=== PATIENT | female | born 2000 | race Caucasian/White ===

== ENCOUNTER 2022-10-13 19:42 | Emergency (ER) | payer BC ==
[~2022-10-13] VITALS: Ht 154.9 cm; Wt 65.8 kg
[2022-10-13 21:09] VITALS: BP 149/96
[2022-10-13] MEDS ORDERED: AMOX-430 PO (22:08)
--- NOTE | 2022-10-13 22:12 | NUR ---
Patient discharged to home in stable condition. Written and verbal after care instructions given. Patient verbalizes understanding of instruction. Pt ambulatory with a steady gait
== END 2022-10-13 22:13 | disposition home or self-care (01) ==
LOC: ER 19:44
DX: J02.9 Acute pharyngitis, unspecified (principal); Z60.2 Problems related to living alone; F17.290 Nicotine dependence, other tobacco product, uncomplicated; Z79.899 Other long term (current) drug therapy
CPT/HCPCS: 86403-TC